=== PATIENT | female | born 1965 | race Caucasian/White ===

== ENCOUNTER 2017-12-11 19:45 | Emergency (ER) | payer MEDICAID ==
[~2017-12-11] VITALS: Ht 157.5 cm; Wt 110.2 kg
[2017-12-11 19:47] VITALS: Ht 157.5 cm; Wt 110.2 kg
[2017-12-11 21:57] LABS: BASOPHIL % 0.2 % (0-2); PLATELET COUNT 250 x10^3mcL (130-400); RED CELL DISTRIBUTION WIDTH 17.1 % (11.5-14.5)
[2017-12-11 22:13] LABS: CALCIUM 9.2 mg/dL (8.5-10.1); CARBON DIOXIDE 25.6 mmol/L (21-32); CHLORIDE SERUM 104 mmol/L (98-107); CREATININE SERUM 0.7 mg/dL (0.6-1.0); GFR1 > 60 mL/min; GLUCOSE SERUM 126 mg/dL (74-106); SODIUM SERUM 140 mmol/L (136-145)
[2017-12-11 22:33] VITALS: BP 148/83
== END 2017-12-11 22:33 | disposition home or self-care (01) ==
LOC: ED 19:45
PROVIDERS: Emergency Medicine
DX: R42 Dizziness and giddiness (principal); R51 Headache; H53.8 Other visual disturbances; R11.0 Nausea; I10 Essential (primary) hypertension
CPT/HCPCS: 36415; J0780; J1885

== ENCOUNTER 2018-02-13 12:22 | Emergency (ER) | payer MEDICAID ==
[~2018-02-13] VITALS: Ht 157.5 cm; Wt 109.3 kg
[2018-02-13 12:30] VITALS: Ht 157.5 cm; Wt 109.3 kg
[2018-02-13 13:02] LABS: BASOPHIL % 0.4 % (0-2); PLATELET COUNT 246 x10^3mcL (130-400)
[2018-02-13 13:04] LABS: CALCIUM 9.1 mg/dL (8.5-10.1); CARBON DIOXIDE 26.2 mmol/L (21-32); CHLORIDE SERUM 104 mmol/L (98-107); CREATININE SERUM 0.7 mg/dL (0.6-1.0); GFR1 > 60 mL/min; GLUCOSE SERUM 170 mg/dL (74-106); POTASSIUM SERUM 4.3 mmol/L (3.5-5.1); RED CELL DISTRIBUTION WIDTH 15.1 % (11.5-14.5); SODIUM SERUM 138 mmol/L (136-145)
[2018-02-13 13:08] LABS: ALBUMIN 3.7 g/dL (3.4-5.0); ALKALINE PHOSPHATASE 133 U/L (46-116); ALT/SGPT 30 U/L (14-59); AST/SGOT 18 U/L (15-37); BILIRUBIN TOTAL 0.49 mg/dL (0.20-1.00); LIPASE 135 IU/L (73-393)
[2018-02-13 13:18] LABS: microscopic required? YES; urine erythrocyte NEGATIVE (NEGATIVE)
[2018-02-13 14:37] VITALS: BP 129/78
== END 2018-02-13 14:37 | disposition home or self-care (01) ==
LOC: ED 12:22
PROVIDERS: Emergency Medicine
DX: R10.30 Lower abdominal pain, unspecified (principal); I10 Essential (primary) hypertension; Z98.890 Other specified postprocedural states
CPT/HCPCS: J1885

== ENCOUNTER 2019-01-06 02:53 | Emergency (ER) | payer MEDICAID ==
[~2019-01-06] VITALS: Ht 160 cm; Wt 108.9 kg
[2019-01-06 03:01] VITALS: Ht 160 cm; Wt 108.9 kg
[2019-01-06 03:57] VITALS: BP 155/70
== END 2019-01-06 03:55 | disposition home or self-care (01) ==
LOC: ED 02:53
DX: H60.92 Unspecified otitis externa, left ear (principal); I10 Essential (primary) hypertension

== ENCOUNTER 2019-03-31 13:59 | Emergency (ER) | payer MEDICAID ==
[~2019-03-31] VITALS: Ht 157.5 cm; Wt 108.4 kg
[2019-03-31 14:03] VITALS: Ht 157.5 cm; Wt 108.4 kg
[2019-03-31 18:00] VITALS: BP 135/72
== END 2019-03-31 18:00 | disposition home or self-care (01) ==
LOC: ED 13:59
DX: M25.561 Pain in right knee (principal); I10 Essential (primary) hypertension